=== PATIENT | female | born 1935 ===

== ENCOUNTER 2022-02-24 22:29 | Emergency (ER) | payer OTHER, SELFPAY ==
[2022-02-24] MEDS ORDERED: HYDROCODONE/APAP 5/325 MG TAB ONE (23:25)
--- NOTE | 2022-02-24 23:36 | ER ---
Nurse's Notes [facility] Name: Renetta Valdez Age: 86 yrs Sex: Female : 1935 Arrival Date: 02/24/2022 Time: 22:32 Bed IW4 Private MD: Diagnosis: Pain in left knee;Degenerative Joint Disease - Left knee Presentation: 02/24 22:39 Chief complaint: Sudden onset left knee pain that started tonight. Denies injury. hb Coronavirus screen: At this time, the client does not indicate any symptoms associated with coronavirus-19. Ebola Screen: No symptoms or risks identified at this time. Initial Sepsis Screen: Does the patient meet any 2 criteria? No. Patient's initial sepsis screen is negative. Does the patient have a suspected source of infection? No. Patient's initial sepsis screen is negative. Risk Assessment: Do you want to hurt yourself or someone else? Patient reports no desire to harm self or others. Onset of symptoms was February 24, 2022. 22:39 Method Of Arrival: Ambulatory hb 22:39 Acuity: RAMESH 4 hb Historical: - Allergies: 22:40 No Known Allergies; hb Vital Signs: 22:39 BP 168 / 98; Pulse 89; Resp 16; Temp 98.1; Pulse Ox 100% on R/A; Weight 78.47 kg; hb Height 5 ft. 3 in. (160.02 cm); Pain 10/10; 22:39 Body Mass Index 30.65 (78.47 kg, 160.02 cm) hb ED Course: 22:32 Patient arrived in ED. bp1 22:37 Masood Muñiz MD is Attending Physician. kdr 22:40 Triage completed. hb 22:41 Arm band placed on. hb 23:02 Knee Left 3 View XRAY In Process Unspecified. EDMS Administered Medications: 23:26 Drug: HYDROcodone-acetaminophen 5 mg-325 mg 1 tabs Route: PO; hb Outcome: 23:35 Discharge ordered by . kdr 02/25 00:05 Patient left the ED. hb Signatures: Dispatcher [employer] EDMS Masood Muñiz MD MD kdr Sherry Mendoza RN RN hb Penny Chambers bp1
--- NOTE | 2022-02-24 23:36 | EDPHYS ---
Physician Documentation [facility] Name: Renetta Valdez Age: 86 yrs Sex: Female : 1935 Arrival Date: 02/24/2022 Time: 22:32 Bed IW4 Private MD: ED Physician Masood Muñiz HPI: 02/25 00:07 This 86 yrs old Female presents to ER via Ambulatory with complaints of Knee Pain. kdr 00:07 Patient was sitting in her chair today with her flat on the ground. When she went to kdr stand up, she had immediate pain in her left knee. She had not had pain like this before. Pain has persisted though been intermittent and positional mostly with movement.. Onset: The symptoms/episode began/occurred suddenly, just prior to arrival. Severity of symptoms: At their worst the symptoms were mild in the emergency department the symptoms are unchanged. The patient has not experienced similar symptoms in the past. The patient has not recently seen a physician. Historical: - Allergies: 02/24 22:40 No Known Allergies; hb ROS: 02/25 00:07 Constitutional: Negative for fever, chills, and weight loss, Eyes: Negative for injury, kdr pain, redness, and discharge, Neck: Negative for injury, pain, and swelling, Cardiovascular: Negative for chest pain, palpitations, and edema, Respiratory: Negative for shortness of breath, cough, wheezing, and pleuritic chest pain, Abdomen/GI: Negative for abdominal pain, nausea, vomiting, diarrhea, and constipation, Back: Negative for injury and pain, : Negative for injury, bleeding, discharge, and swelling, Skin: Negative for injury, rash, and discoloration, Neuro: Negative for headache, weakness, numbness, tingling, and seizure activity. Psych: Negative for depression, anxiety, suicide ideation, homicidal ideation, and hallucinations, Allergy/Immunology: Negative for hives, rash, and allergies, Endocrine: Negative for neck swelling, polydipsia, polyuria, polyphagia, and marked weight changes, Hematologic/Lymphatic: Negative for swollen nodes, abnormal bleeding, and unusual bruising. MS/extremity: Positive for injury or acute deformity, pain, Negative for acute changes, decreased range of motion, deformity, ecchymosis, erythema, laceration, swelling, warmth. Exam: 00:07 Constitutional: This is a well developed, well nourished patient who is awake, alert, kdr and in no acute distress. 00:07 Musculoskeletal/extremity: Extremities: grossly normal except: noted in the left knee: decreased ROM, pain, Had distant pain in the left knee. It appeared to be internal in the knee itself versus with any of the ligamentous supporting structures. She was able to straighten and flex the knee with minimal discomfort but she was cautious given the earlier pain. Vital Signs: 02/24 22:39 BP 168 / 98; Pulse 89; Resp 16; Temp 98.1; Pulse Ox 100% on R/A; Weight 78.47 kg; hb Height 5 ft. 3 in. (160.02 cm); Pain 10; 22:39 Body Mass Index 30.65 (78.47 kg, 160.02 cm) hb MDM: 23:35 Patient medically screened. kdr 02/25 00:07 Data reviewed: vital signs, nurses notes, radiologic studies. Counseling: I had a kdr detailed discussion with the patient and/or guardian regarding: the historical points, exam findings, and any diagnostic results supporting the discharge/admit diagnosis, radiology results, the need for outpatient follow up. ED course: The patient was offered crutches, knee immobilizer and/or Doug wrap all of which she declined. She indicates you to follow-up with her Dr. Avelar for further evaluation. She was given the names of the orthopedic surgeons in the neighborhood. Patient was happy with the care provided plan for discharge and follow-up. 02/24 22:43 Order name: Knee Left 3 View XRAY kdr Administered Medications: 02/24 23:26 Drug: HYDROcodone-acetaminophen 5 mg-325 mg 1 tabs Route: PO; hb Disposition Summary: 02/24/22 23:35 Discharge Ordered Location: Home kdr Problem: new kdr Symptoms: have improved kdr Condition: Stable kdr Diagnosis - Pain in left knee kdr - Degenerative Joint Disease - Left knee kdr Followup: kdr - With: Private Physician - When: 2 - 3 days - Reason: If symptoms return, Further diagnostic work-up, Recheck today's complaints, Continuance of care, Re-evaluation by your physician Discharge Instructions: - Discharge Summary Sheet kdr - Joint Pain kdr - Musculoskeletal Pain kdr - Acute Knee Pain, Adult kdr Forms: - Medication Reconciliation Form kdr - Thank You Letter kdr - Antibiotic Education kdr - Prescription Opioid Use kdr Prescriptions: - Tylenol-Codeine #3 300 mg-30 mg Oral - take 1 tablet by ORAL route every 4-6 hours As needed; 12 tablet; Refills: 0, kdr Product Selection Permitted Signatures: Dispatcher [employer] Masood Thornton MD MD kdr Sherry Mendoza, RN RN hb
[2022-02-25 15:58] VITALS: BP 168/98; TEMP 98.1; O2SAT 100
--- NOTE | 2022-02-26 17:59 | RAD REPORT ---
EXAM DESCRIPTION: RAD - Knee Left 3 View - 02/24/2022 11:00 pm CLINICAL HISTORY: 86 years Female, PAIN TECHNIQUE: 3 views COMPARISON: None. FINDINGS: BONES/JOINT: No acute fracture or dislocation. Mild tricompartment joint space narrowin g. No marginal osteophytes or subchondral sclerosis. Enthesophytes along the quadriceps and patellar tendon. SOFT TISSUES: No suprapatellar joint effusion. No radiopaque foreign body. IMPRESSION: 1. No acute fracture. 2. Mild tricompartment joint space narrowing. Electronically signed by: Benson Mariscal MD 02/24/2022 11:19 PM [facility] Due to temporary technical issues with the PACS/Fluency reporting system, reports are being signed by the in house radiologists without review as a courtesy to insure prompt reporting. The interpreting radiologist is fully responsible for the content of the report.
== END 2022-02-25 00:05 | disposition home or self-care (01) ==
LOC: ER 22:29
DX: M17.12 Unilateral primary osteoarthritis, left knee (principal)
CPT/HCPCS: 99283